=== PATIENT | female | born 1985 | race Caucasian/White ===

== ENCOUNTER 2017-04-28 19:02 | Day surgery (SDC) | payer OTHER ==
[~2017-04-28 19:02] MED LIST: DEXAMETHASONE 4 MG/ML VIAL IVP ONE; GLYCOPYRROLATE 1 MG/5 ML VIAL IVP ONE; MIDAZOLAM 2 MG/2 ML VIAL IVP ONE; NEOSTIGMINE 1 MG/1 ML 10 ML MDV IVP ONE; ONDANSETRON 4 MG/2 ML VIAL IVP ONE; PROPOFOL 200 MG/20 ML VIAL IVP ONE; ROCURONIUM 50 MG/5 ML VIAL IVP ONE; fentaNYL 100 MCG/2 ML VIAL IVP ONE
[2017-04-28 19:32] LABS: BILIRUBIN,URINE NEGATIVE (NEGATIVE); GLUCOSE, URINE (UA) NEGATIVE (NEGATIVE); KETONES,URINE (UA) TRACE mg/dL (NEGATIVE); LEUKOCYTE ESTERASE, URINE NEGATIVE (NEGATIVE); NITRITE,URINE NEGATIVE (NEGATIVE); OCCULT BLOOD,URINE TRACE-LYSE (NEGATIVE); PROTEIN,URINE NEGATIVE (NEGATIVE); UROBILINOGEN,URINE 0.2 (NORMAL) E.U./dL (NORMAL)
[2017-04-28 19:36] LABS: CLARITY,URINE CLEAR (CLEAR); HCG UR QUAL NEGATIVE
[2017-04-28 19:49] LABS: BASOPHILS # (AUTO) 0.2 10^3/uL (0.0-0.1); BASOPHILS % (AUTO) 0.9 %; EOSINOPHILS # (AUTO) 0.1 10^3/uL (0.0-0.7); EOSINOPHILS % (AUTO) 0.4 %; HGB - HEMOGLOBIN 13.7 g/dL (12.0-16.0); LYMPHOCYTES # (AUTO) 2.7 10^3/uL (1.5-3.5); LYMPHOCYTES % (AUTO) 13.9 %; MEAN CORPUSCULAR HEMOGLOBIN 30.6 pg (27.0-31.0); MEAN CORPUSCULAR HGB CONC 33.4 g/dL (32.0-36.0); MEAN CORPUSCULAR VOLUME 91.6 fL (81.0-99.0); MEAN PLATELET VOLUME 8.3 fL (7.9-10.8); MONOCYTES % (AUTO) 5.1 %; NEUTROPHILS # (AUTO) 15.2 10^3/uL (1.5-6.6); NEUTROPHILS % (AUTO) 79.7 %; PLT - PLATELET COUNT 210 10^3/uL (130-450); RED BLOOD COUNT 4.48 10^6/uL (4.20-5.40); RED CELL DISTRIBUTION WIDTH 13.1 % (12.0-15.0); WHITE BLOOD COUNT 19.1 x10^3/uL (4.8-10.8)
--- NOTE | 2017-04-28 20:00 | ED Physician Documentation ---
PD HPI ABD PAIN - Stated complaint Stated Complaint: ADBOMINAL PAIN - Chief complaint Chief Complaint: Abd Pain - History obtained from History obtained from: Patient - History of Present Illness Timing - onset: Other (Previously healthy 31-year-old woman visiting from [place] for the weekend developed sudden onset upper abdominal pain around 5 PM tonight with a single episode of nonbloody vomiting which over the course of the next half hour moved into the lower abdomen. She is on her menses right now. It is at normal time and normal flow. No fevers or chills. Declines pain medication on initial evaluation.) Review of Systems Ten Systems: 10 systems reviewed and negative Constitutional: denies: Fever, Chills Nose: denies: Rhinorrhea / runny nose, Congestion Cardiac: denies: Chest pain / pressure, Palpitations Respiratory: denies: Dyspnea, Cough PD PAST MEDICAL HISTORY - Past Medical History Past Medical History: No - Past Surgical History Past Surgical History: No - Present Medications Home Medications: Ambulatory Orders Medication Instructions Recorded Confirmed Bcp 04/28/17 - Allergies Allergies/Adverse Reactions: Allergies Allergy/AdvReac Type Severity Reaction Status Date / Time No Known Drug Allergies Allergy Verified 04/28/17 19:16 - Social History Does the pt smoke?: No Smoking Status: Never smoker Does the pt drink ETOH?: Yes Does the pt have substance abuse?: No - Family History Family history: reports: Non contributory PD ED PE NORMAL - Vitals Vital signs reviewed: Yes - General General: Alert and oriented X 3, No acute distress - HEENT HEENT: PERRL, EOMI - Neck Neck: Supple, no meningeal sign, No bony TTP - Cardiac Cardiac: RRR, No murmur - Respiratory Respiratory: No respiratory distress, Clear bilaterally - Abdomen Abdomen: Other (Soft with focal right lower quadrant tenderness and positive Rovsing sign.) - Back Back: No CVA TTP, No spinal TTP - Derm Derm: Normal color, Warm and dry - Neuro Neuro: Alert and oriented X 3, Normal speech - Psych Psych: Normal mood, Normal affect Results - Vitals Vitals: Vital Signs - 24 hr 04/28/17 04/28/17 19:13 21:51 Temperature 36.2 C L 37.3 C Heart Rate 78 84 Respiratory 16 16 Rate Blood Pressure 129/81 H 114/74 O2 Saturation 100 100 Oxygen O2 Source Room air - Labs Labs: Laboratory Tests 04/28/17 04/28/17 04/28/17 19:25 19:25 19:43 WBC 19.1 H RBC 4.48 Hgb 13.7 Hct 41.0 MCV 91.6 MCH 30.6 MCHC 33.4 RDW 13.1 Plt Count 210 MPV 8.3 Neut # 15.2 H Lymph # 2.7 [place] # 1.0 Eos # 0.1 Baso # 0.2 H Absolute Nucleated RBC 0.00 Nucleated RBC % 0.0 Sodium Potassium Chloride Carbon Dioxide Anion Gap BUN Creatinine Estimated GFR (MDRD) Glucose Calcium Total Bilirubin AST ALT Alkaline Phosphatase Total Protein Albumin Globulin Albumin/Globulin Ratio Lipase Urine Color YELLOW Urine Clarity CLEAR Urine pH 6.0 Ur Specific [place] 1.025 1.025 Urine Protein NEGATIVE Urine Glucose (UA) NEGATIVE Urine Ketones TRACE Urine Occult Blood TRACE-LYSE Urine Nitrite NEGATIVE Urine Bilirubin NEGATIVE Urine Urobilinogen 0.2 (NORMAL) Ur Leukocyte Esterase NEGATIVE Ur Microscopic Review NOT INDICATED Urine Culture Comments NOT INDICATED Urine HCG, Qual NEGATIVE 04/28/17 19:43 WBC RBC Hgb Hct MCV MCH MCHC RDW Plt Count MPV Neut # Lymph # [place] # Eos # Baso # Absolute Nucleated RBC Nucleated RBC % Sodium 137 Potassium 3.7 Chloride 104 Carbon Dioxide 22 Anion Gap 11.0 BUN 11 Creatinine 0.6 Estimated GFR (MDRD) 118 Glucose 95 Calcium 9.4 Total Bilirubin 0.9 AST 18 ALT 18 Alkaline Phosphatase 29 L Total Protein 7.5 Albumin 4.4 Globulin 3.1 Albumin/Globulin Ratio 1.4 Lipase 14 L Urine Color Urine Clarity Urine pH Ur Specific [place] Urine Protein Urine Glucose (UA) Urine Ketones Urine Occult Blood Urine Nitrite Urine Bilirubin Urine Urobilinogen Ur Leukocyte Esterase Ur Microscopic Review Urine Culture Comments Urine HCG, Qual - Rads (name of study) CT A/P Radiology: EMP read contemporaneously (uncomplicated appy) PD MEDICAL DECISION MAKING - ED course ED course: 31-year-old woman with somewhat atypical, kind of rapid story for appendicitis but a typical examination and improvement on CT. Call to Dr. Maki for surgery at 9:55 PM. Departure - Departure Disposition: ED Place in Observation Clinical Impression: Appendicitis Qualifiers: Appendicitis type: acute appendicitis Acute appendicitis type: with localized peritonitis Qualified Code(s): K35.3 - Acute appendicitis with localized peritonitis Condition: Stable
[2017-04-28 20:02] LABS: ALBUMIN 4.4 g/dL (3.2-5.5); ALBUMIN/GLOBULIN RATIO 1.4 (1.0-2.2); BILIRUBIN,TOTAL 0.9 mg/dL (0.2-1.0); CALCIUM 9.4 mg/dL (8.5-10.3); CREATININE 0.6 mg/dL (0.4-1.0); TOTAL PROTEIN 7.5 g/dL (6.7-8.2)
[2017-04-28] MEDS ORDERED: IOPAMIDOL-300 100 ML VIAL ONE (20:24)
[2017-04-28] MEDS ORDERED: IOPAMIDOL-300 100 ML VIAL IVP ONE (21:18)
--- NOTE | 2017-04-28 21:36 | CT Report ---
EXAM: CT ABDOMEN AND PELVIS EXAM DATE: 04/28/2017 09:19 PM. CLINICAL HISTORY: IV only, RLQ pain. COMPARISONS: None. TECHNIQUE: Routine helical CT imaging was performed through the abdomen and pelvis. IV contrast: 100M L ISOVUE 300. Enteric contrast: No. Reconstructions: Coronal and sagittal. In accordance with CT protocol optimization, one or more of the following dose reduction techniques w ere utilized for this exam: automated exposure control, adjustment of mA and/or KV based on patient s ize, or use of iterative reconstructive technique. FINDINGS: Lung Bases: Unremarkable. Liver: 7 mm hypoattenuating liver dome lesion too small to characterize but most likely a cyst or hem angioma. Gallbladder/Bile Ducts: Unremarkable. Spleen: Normal. Pancreas: Normal. Adrenal Glands: Normal. Kidneys: Normal. No masses or hydronephrosis. Peritoneal Cavity/Bowel: Appendix dilated with mucosal enhancement and adjacent inflammation, measuri ng up to 9 mm. Adjacent inflammation. Fecalith in the tip. Trace pelvic free fluid. No abscess or april e air. No lymphadenopathy. Pelvic Organs: Apparent urinary bladder wall thickening may be due to incomplete distention. Uterus a nd adnexa are unremarkable. Vasculature: No aneurysms or other significant abnormality. Bones: No significant abnormality. Other: None. IMPRESSION: Uncomplicated acute appendicitis. Trace pelvic free fluid. [facility] Referring Provider Line: [phone] SITE ID: [id number]
[2017-04-28 22:53] VITALS: BP 127/92
[2017-04-28] MEDS ORDERED: ONDANSETRON 4 MG/2 ML VIAL IVP STA (23:19)
[2017-04-28] MEDS ORDERED: MORPHINE 2 MG/ML CARPUJECT IVP STA (23:19)
[2017-04-28] MEDS ORDERED: LACTATED RINGERS 1,000 ML IV ONE (23:26)
[2017-04-28] MEDS ORDERED: BUPIVACAINE 0.25% PF 30 ML VIAL SUBQ ONE ×2 (23:55)
[2017-04-29] MEDS ORDERED: LACTATED RINGERS 1,000 ML IV ONE (00:32)
[2017-04-29] MEDS: HYDROmorphone 1 MG/ML SYRINGE ONE ×3 (00:43→00:56)
[2017-04-29] MEDS ORDERED: MORPHINE 2 MG/ML CARPUJECT ONE (04:56)
[2017-04-29] MEDS ORDERED: SODIUM CHLORIDE FLUSH 0.9% 10 ML SYRINGE ONE (04:57)
[2017-04-29] MEDS ORDERED: ONDANSETRON 4 MG/2 ML VIAL IVP PRN (07:23)
[2017-04-29] MEDS ORDERED: HYDROcod/ACETAM 5/325 MG TABLET PO PRN (07:24)
[2017-04-29] MEDS ORDERED: HYDROmorphone 1 MG/ML SYRINGE IVP PRN (07:24)
[2017-04-29] MEDS ORDERED: KETOROLAC 30 MG/ML VIAL IVP PRN (07:25)
--- NOTE | 2017-04-30 07:14 | OPERATIVE REPORT ---
DATE OF SERVICE: 04/29/2017 Physician: Jaret Maki MD PREOPERATIVE DIAGNOSIS: Acute appendicitis. POSTOPERATIVE DIAGNOSIS: Acute appendicitis. PROCEDURE PERFORMED: SURGEON: Jaret Maki MD ANESTHESIA: General. INDICATION FOR SURGERY: The patient is a 31-year-old female who presented with lower abdominal pain, right side, earlier on the day of 04/28/2017. Because of the pain, she came to the emergency room where a CT scan of the abdomen and pelvis was obtained. This showed a dilated appendix consistent with acute appendicitis. FINDINGS AT SURGERY: The patient had acutely inflamed, nonperforated appendicitis. DESCRIPTION OF PROCEDURE: After informed consent was obtained, the patient was taken to the operating room and placed in supine position. General endotracheal anesthesia was administered. The patient's abdomen was then prepped and draped in the usual sterile fashion. Prior to making any abdominal incisions, the skin was injected with local anesthesia. An infraumbilical incision was made in the skin using a scalpel. A 5 mm Optiview trocar was then inserted through the opening through the fascia and into abdominal cavity under direct vision. The abdomen was then insufflated. Looking inside, no injuries were noted. A 5 mm port was placed in the right and left lower quadrants and the 5 mm port at the umbilicus was switched to a 12 mm port under direct vision. Looking in the right lower quadrant, the patient's appendix was acutely inflamed. An opening was then made in the mesentery of the appendix at its base. An Endo-ODELL was then placed across the base of the appendix stapling and dividing it. A second Endo-ODELL was placed across the mesentery of the appendix stapling and dividing it. The appendix was then placed in the Endobag and removed through the umbilical port. Looking in the right lower quadrant, no bleeding was noted. The ports were then removed and no bleeding was noted at the port sites. The abdomen was desufflated. The umbilical fascial defect was closed using #0 Vicryl sutures. The skin incisions were closed using 4-0 Monocryl subcuticular stitch. Dermabond was then applied. The patient was then awakened, extubated, and taken from the operating room in stable condition. ESTIMATED BLOOD LOSS: Less than 5 mL. COMPLICATIONS: None. CONDITION OF THE PATIENT: Stable. SPECIMENS: Appendix. DRAINS AND PACKS: None. CLASSIFICATION OF WOUND: Clean/contaminated. TD: 04/30/2017 07:13
== END 2017-04-29 10:30 | disposition home or self-care (01) ==
LOC: ED 19:02 → SDS 23:00 → OBS 04-29 00:47 → SDS 04-29 10:30
PROVIDERS: ATTEND Surgery
PROC: 0DTJ4ZZ Resection of Appendix, Percutaneous Endoscopic Approach (ICD-10-PCS; principal; 2017-04-29)
DX: K35.80 Unspecified acute appendicitis (principal); K38.0 Hyperplasia of appendix
CPT/HCPCS: 36415; 44970; 74177; 80053; 81003; 81025; 83690; 85025; 99283; 99285; A9270; J1170; J7120; Q9967; 81001; 87086; 99284